=== PATIENT | male | born 1995 | race Caucasian/White ===

== ENCOUNTER 2023-07-08 09:57 | Emergency (ER) | payer OTHER ==
[~2023-07-08] VITALS: Ht 182.9 cm; Wt 111.1 kg
[2023-07-08 09:59] VITALS: BP 162/100; PULSE 118; RESP 20
[2023-07-08] MEDS ORDERED: SULF1TAB42 PO (10:41)
== END 2023-07-08 11:08 | disposition home or self-care (01) ==
LOC: EDH 09:57
DX: L02.31 Cutaneous abscess of buttock (principal)

== ENCOUNTER 2023-07-31 22:50 | Emergency (ER) | payer OTHER ==
[~2023-07-31] VITALS: Ht 182.9 cm; Wt 108.9 kg
[~2023-07-31 22:50] MED LIST: SULF1TAB42 PO
[2023-07-31 22:51] VITALS: BP 150/94; PULSE 100; RESP 18
[2023-07-31] MEDS ORDERED: DOXY500P4 MC (23:07)
[2023-07-31] MEDS ORDERED: LORA10TA7 PO (23:07)
== END 2023-07-31 23:17 | disposition home or self-care (01) ==
LOC: EDH 22:50
DX: R21 Rash and other nonspecific skin eruption (principal)